=== PATIENT | male | born 1970 | race Hispanic/Latino ===

== ENCOUNTER 2017-09-03 05:23 | Emergency (ER) | payer BC, OTHER ==
[2017-09-03 05:30] VITALS: BMI 27.8
[2017-09-03 05:33] VITALS: BP 155/93; PULSE 63; RESP 16; TEMP 97.7; O2SAT 99
--- NOTE | 2017-09-03 05:46 | ED PDOC ---
Arrival/HPI - General Chief Complaint: Finger,Hand,&Wrist Time Seen by Provider: 09/03/17 05:37 Historian: Patient - History of Present Illness Narrative History of Present Illness (Text): 09/03/17 05:43 Dariusz Merida is a 47 year old male complaining of an injury to his right index finger that occurred while grouting tiles three days ago. Patient denies any fever, chills, chest pain, shortness of breath, nausea, vomiting, diarrhea, urinary symptoms, back pain, neck pain, headache, dizziness, or any other complaints. Time/Duration: < week Symptom Onset: Sudden Symptom Course: Unchanged Severity Level: Mild Activities at Onset: Significant Context: Home Past Medical History - Provider Review Nursing Documentation Reviewed: Yes - Pulmonary Hx Pulmonary Embolism: Yes - Hematological/Oncological Other/Comment: Lupus - Psychiatric Hx Substance Use: No - Anesthesia Hx Anesthesia: No Family/Social History - Physician Review Nursing Documentation Reviewed: Yes Family/Social History: No Known Family HX Smoking Status: Never Smoked Hx Alcohol Use: No Hx Substance Use: No Allergies/Home Meds Allergies/Adverse Reactions: Allergies No Known Allergies Allergy (Verified 09/03/17 05:30) Home Medications: Home Meds Medication Instructions Recorded Confirmed Warfarin [Coumadin] 4.5 mg PO DAILY 09/03/17 09/03/17 Review of Systems - Physician Review All systems were reviewed & negative as marked: Yes - Review of Systems Constitutional: absent: Fevers, Night Sweats Eyes: absent: Vision Changes ENT: absent: Hearing Changes Respiratory: absent: SOB, Cough Cardiovascular: absent: Chest Pain Gastrointestinal: absent: Abdominal Pain Genitourinary Male: absent: Dysuria, Frequency Musculoskeletal: absent: Arthralgias Skin: Other (injury to right index finger) Neurological: absent: Headache, Dizziness Endocrine: absent: Diaphoresis Hemo/Lymphatic: absent: Adenopathy Psychiatric: absent: Anxiety, Depression Physical Exam Vital Signs Reviewed: Yes Vital Signs Temp Pulse Resp BP Pulse Ox 09/03/17 05:24 97.7 F 63 16 155/93 H 99 Temperature: Afebrile Blood Pressure: Hypertensive Pulse: Regular Respiratory Rate: Normal Appearance: Positive for: Well-Appearing, Non-Toxic, Comfortable Mental Status: Positive for: Alert and Oriented X 3 - Systems Exam Head: Present: Atraumatic, Normocephalic Pupils: Present: PERRL Extroacular Muscles: Present: EOMI Conjunctiva: Present: Normal Mouth: Present: Moist Mucous Membranes Neck: Present: Normal Range of Motion Respiratory/Chest: Present: Clear to Auscultation, Good Air Exchange. No: Respiratory Distress, Accessory Muscle Use Cardiovascular: Present: Regular Rate and Rhythm, Normal S1, S2. No: Murmurs Abdomen: Present: Normal Bowel Sounds. No: Tenderness, Distention, Peritoneal Signs Back: Present: Normal Inspection Upper Extremity: Present: Normal Inspection. No: Cyanosis, Edema Lower Extremity: Present: Other (ecchymosis to right index finger) Neurological: Present: GCS=15, CN II-XII Intact, Speech Normal Skin: Present: Warm, Dry, Normal Color. No: Rashes Psychiatric: Present: Alert, Oriented x 3, Normal Insight, Normal Concentration Medical Decision Making ED Course and Treatment: 09/03/17 05:47 Impression: 47 year old male complaining of an injury to his right index finger that occurred while grouting tiles three days ago. Plan: -- right hand 2nd digit x-ray -- Reassess and disposition Progress Notes: - RAD Interpretation Radiology Orders: 09/03/17 05:43 HAND RIGHT 2ND DIGIT (FINGER) [RAD] Stat - Medication Orders Current Medication Orders: Discontinued Medications Cephalexin Monohydrate (Keflex) 500 mg PO STAT STA PRN Reason: Protocol Stop: 09/03/17 06:23 Last Admin: 09/03/17 06:36 Dose: 500 mg - Scribe Statement The provider has reviewed the documentation as recorded by the Quentin Sim Provider Scribe Attestation: All medical record entries made by the Tiffanieibalton were at my direction and personally dictated by me. I have reviewed the chart and agree that the record accurately reflects my personal performance of the history, physical exam, medical decision making, and the department course for this patient. I have also personally directed, reviewed, and agree with the discharge instructions and disposition. Disposition/Present on Arrival - Present on Arrival Any Indicators Present on Arrival: No History of DVT/PE: Yes History of Uncontrolled Diabetes: No Urinary Catheter: No History of Decub. Ulcer: No History Surgical Site Infection Following: None - Disposition Have Diagnosis and Disposition been Completed?: Yes Diagnosis: Paronychia of right index finger Disposition: HOME/ ROUTINE Disposition Time: 06:35 Condition: GOOD Discharge Instructions (ExitCare): Paronychia (ED) Prescriptions: Cephalexin [Keflex] 500 mg PO BID #20 capsule Referrals: Wu Petty, [Non-Staff] - Follow up with primary Forms: [employer] ([place])
--- NOTE | 2017-09-03 08:40 | RAD ---
PROCEDURE: Right Hand Radiographs. HISTORY: injury COMPARISON: None. FINDINGS: BONES: Normal. No fracture. JOINTS: Normal. No osteoarthritic changes. SOFT TISSUES: Normal. OTHER FINDINGS: None. IMPRESSION: Normal right hand radiographs.
== END 2017-09-03 06:37 | disposition home or self-care (01) ==
LOC: ED 05:23
DX: L03.011 Cellulitis of right finger (principal); M32.9 Systemic lupus erythematosus, unspecified; Z86.711 Personal history of pulmonary embolism; Z79.01 Long term (current) use of anticoagulants